=== PATIENT | female | born 2000 | race Caucasian/White ===

== ENCOUNTER 2020-02-15 15:23 | Emergency (ER) | payer BC, SELFPAY ==
[2020-02-15 15:42] VITALS: BP 144/90; PULSE 82; RESP 20; TEMP 37.7; O2SAT 100
[2020-02-15 15:44] VITALS: BP 144/90; PULSE 82; RESP 20; TEMP 37.7; O2SAT 100
--- NOTE | 2020-02-15 15:57 | ED.URI ---
HPI - URI/Sore Throat General Chief Complaint: Upper Respiratory Infection Stated Complaint: runny nose/headache Time Seen by Provider: 02/15/20 15:43 Source: patient and RN notes reviewed Mode of arrival: ambulatory Limitations: no limitations History of Present Illness HPI Narrative: Patient presents today complaining of a 5-day history of fatigue. Yesterday she started experiencing rhinorrhea, headache, body aches, nasal congestion. Today she lost her sense of smell. Denies fever or cough. She currently rates her headache 03/17 and has been taking Tylenol with relief. She is here requesting a rapid Covid test today. 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 MD elicited complaint: rhinorrhea and nasal congestion Related Data Home Medications Medication Instructions Recorded Confirmed norethindrone-e.estradiol-iron tablet 02/15/20 [[place] Fe 02/24 (28)] Allergies Allergy/AdvReac Type Severity Reaction Status Date / Time amoxicillin Allergy Hives Verified 02/15/20 15:36 Penicillins Allergy Hives Verified 02/15/20 15:36 Review of Systems Review of Systems: Narrative: CONSTITUTIONAL: Denies body aches, fever, chills, or sweats.+ Fatigue, body aches EYES: Denies visual changes, redness, or discharge. ENT: Denies sore throat, or otalgia. + Congestion, rhinorrhea, loss of smell CARDIOVASCULAR: Denies chest pain, palpitations, or edema. RESPIRATORY: Denies cough or dyspnea. GASTROINTESTINAL: Denies abdominal pain, nausea, vomiting, or diarrhea. GENITOURINARY: Denies dysuria or hematuria. SKIN: Denies rash, itching, or wounds. MUSCULOSKELETAL: Denies back pain, joint pain, or myalgia. NEUROLOGIC: Denies numbness, tingling, or weakness. = Headache PSYCH: Denies depression or anxiety. [facility] Past Medical History Medical History (Updated 02/15/20 @ 16:32 by Darlyn Chu, MANAGER NON PROFIT, ) No significant past medical history Comments At time of signature, I have reviewed and agree with nursing past medical, surgical, social and family history unless otherwise noted. Please see nursing chart for further information. There is no relevant family history pertinent to the presenting complaint Exam Narrative: Exam Narrative: GENERAL: Well-appearing, well-nourished, and in no acute distress. HEAD: Normocephalic, atraumatic. EYES: EOMI. No redness or drainage. Conjunctivae normal. ENT: Mucous membranes pink and moist. Nares clear. No rhinorrhea. TMs normal bilaterally. Throat normal. Uvula midline. NECK: Normal AROM. Supple. No lymphadenopathy. CHEST: No respiratory distress. Clear to auscultation. HEART: Regular rate and rhythm. No murmur appreciated. Normal peripheral pulses. EXTREMITIES: Normal range of motion. No edema. SKIN: Warm, dry, no rash. Capillary refill normal. Normal skin turgor. NEURO: No focal deficits. Alert and oriented x3. Gait steady. PSYCH: Normal affect. No signs of depression or anxiety. Course Vital Signs Vital signs: Vital Signs Temperature 100 F H 02/15/20 15:42 Pulse Rate 82 02/15/20 15:42 Respiratory Rate 20 02/15/20 15:42 Blood Pressure 144/90 H 02/15/20 15:42 Pulse Oximetry 100 02/15/20 15:42 Temperature 100 F H 02/15/20 15:44 Pulse Rate 82 02/15/20 15:44 Respiratory Rate 20 02/15/20 15:44 Blood Pressure 144/90 H 02/15/20 15:44 Pulse Oximetry 100 02/15/20 15:44 Reviewed. Pt has been instructed to follow up with her PCP regarding her elevated blood pressure today. MDM - URI/Sore Throat Differential Diagnosis Differential diagnosis: Likely upper respiratory infection, sinusitis, viral infection and other (COVID-19, viral syndrome) Lab Data Attestation: I reviewed the patient's lab results. Labs: Lab Results 02/15/20 Range/Units 15:40 POC SARS CoV-2 Ag Positive (Negative) Critical Care Time Critical Care Time Critical Care Time:
== END 2020-02-15 16:11 | disposition home or self-care (01) ==
PROVIDERS: Emergency Provider Nurse Practitioner
DX: U07.1 COVID-19 (principal)
CPT/HCPCS: 87426; 99213; C9803; G0463

== ENCOUNTER 2020-05-31 16:33 | Emergency (ER) | payer OTHER, BC, SELFPAY ==
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
[2020-05-31 16:37] VITALS: BP 127/73; PULSE 81; RESP 16; TEMP 36.5; O2SAT 100
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
[2020-05-31 19:23] VITALS: BP 122/70; PULSE 79; RESP 18; O2SAT 98
== END 2020-05-31 19:25 | disposition home or self-care (01) ==
PROVIDERS: Emergency Provider Emergency Medicine
DX: S29.019A Strain of muscle and tendon of unspecified wall of thorax, initial encounter (principal); M47.814 Spondylosis without myelopathy or radiculopathy, thoracic region; V49.40XA Driver injured in collision with unspecified motor vehicles in traffic accident, initial encounter
CPT/HCPCS: 72072; 72128; 81025; 99284